=== PATIENT | male | born 1995 | race Caucasian/White ===

== ENCOUNTER 2019-01-29 11:39 | Observation (INO) | payer OTHER ==
[2019-01-29] MEDS ORDERED: NS 1,000 ML IV ONE (12:00)
[2019-01-29] MEDS ORDERED: ONDANSETRON 4 MG/2 ML VIAL IVP ONE (12:00)
--- NOTE | 2019-01-29 12:00 | EDPHY ---
H & P Stated Complaint: Pt N/V since 0400, denies bleeding, has bilat LQ pain - Personal History Current Tetanus/Diphtheria Vaccine: Yes - Medical/Surgical History Hx Asthma: No Hx Chronic Respiratory Disease: No Hx Diabetes: No Hx Cardiac Disease: No Hx Renal Disease: No Hx Cirrhosis: No Hx Alcoholism: No Hx HIV/AIDS: No Hx Splenectomy or Spleen Trauma: No Other PMH: none - Social History Smoking Status: Never smoked Time Seen by Provider: 01/29/19 11:44 HPI/ROS: CHIEF COMPLAINT: Nausea vomiting diarrhea since 4:00 a.m. HISTORY OF PRESENT ILLNESS: 23-year-old male with no history of chronic abdominal pathology abdominal surgeries awoke with nausea vomiting diarrhea since 4:00 a.m. today. No alcohol use last evening. Lives by himself. No international travel. No untreated water sources. Last antibiotic was approximately once ago for upper respiratory infection symptoms but notes no sequelae from that. He denies: Abdominal pain currently, testicular pain, back pain, fever, chills, myalgias, trauma, urinary abnormality REVIEW OF SYSTEMS: 10 systems reviewed and negative with the exception of the elements mentioned in the history of present illness PAST MEDICAL & SURGICAL HISTORY: No pertinent medical or surgical history SOCIAL HISTORY: No alcohol use last evening PHYSICAL EXAM (Prior to examination, patient consented to physical exam, hands were washed and my usual and customary physical exam procedures followed) 1) GENERAL: Well-developed, well-nourished, alert and oriented. Appears to be in no acute distress. 2) HEAD: Normocephalic, atraumatic 3) HEENT: Pupils equal, round, reactive to light bilaterally. Sclera anicteric. Nasopharynx, oropharynx, clear, no lesions. Dry mucous membranes. 4) NECK: Full range of motion, no meningeal signs. 5) LUNGS: Clear auscultation bilaterally, no wheezes, no rhonchi, no retractions. 6) HEART: Regular rate and rhythm, no murmur, no heave, no gallop. 7) ABDOMEN: No guarding, no rebound, no focal tenderness, negative McBurney's, negative Mercado's, negative Rovsing's, negative peritoneal sign, I am unable to elicit any abdominal pain on exam 8) MUSCULOSKELETAL: Moving all extremities, no focal areas of tenderness, no obvious trauma. No peripheral edema or discoloration. 9) BACK: No CVA tenderness, no midline vertebral tenderness, no fluctuance, no step-off, no obvious trauma, no visual or palpable abnormality. 10) SKIN: No rash, no petechiae. 11) Psychiatric: Patient is oriented X 3, there is no agitation. DIFFERENTIAL DIAGNOSIS: My differential diagnosis includes, but is not limited to, acute appendicitis, acute cholecystitis, bowel obstruction, acute pancreatitis, testicular torsion, gastritis and urinary tract infection. The patient understands that this diagnosis is provisional and can never be 100% accurate. This is a partial list of diagnoses considered. These considerations are based on history, physical exam, past history and reassessment. (Chung Al) Constitutional: Initial Vital Signs Temperature (C) 36.5 C 01/29/19 11:42 Heart Rate 71 01/29/19 11:42 Respiratory Rate 16 01/29/19 11:42 Blood Pressure 149/82 H 01/29/19 11:42 O2 Sat (%) 99 01/29/19 11:42 O2 Delivery Mode Room Air O2 (L/minute) 2 Allergies/Adverse Reactions: No Known Allergies Allergy (Verified 01/29/19 18:31) Home Medications: Medication Instructions Recorded NK [No Known Home Meds] 01/29/19 Medical Decision Making - Diagnostics Imaging Results: Imaging Impressions Abdomen CT 01/29/19 13:12 Impression: 1. Possible early acute appendicitis with multiple appendicoliths and thickening of the appendix up to 15 mm. 2. No bowel obstruction, abscess, or focal fluid collection. Findings and recommendations discussed with Emergency Department physicianChung PAC at 14:36 hour, 01/29/2019. Final report concurs with initial preliminary interpretation. ED Course/Re-evaluation: 130 p.m.: Re-evaluated the patient, [place] [address]. I re -examined the patient he is complaining of continued pain lower abdomen. When I reexamine the patient I am unable to elicit pain. We discussed options including recheck in the ER in [address] imaging now to evaluate for possible appendicitis. Patient requests CT imaging now. Indications risks benefits discussed with patient he consents. 2:40 p.m.: Discussed with patient's imaging results positive for appendicular lists a possible early appendicitis. Will consult with surgery 246 pm: Dr Amin in ER to see patient (Chung Al) Other Provider: PHYSICIAN DOCUMENTATION: The patient was evaluated and managed by the Physician Business Applications Manager and myself. I have reviewed the chart and agree with the findings and plan of care as documented. In addition, I examined the patient myself at 1220. History confirmed as vomiting and diarrhea since 4:00 a.m.. Physical findings as follows : Abdomen soft nontender, specifically no McBurney's point tenderness. Plan IV hydration, antiemetics, then reassess. CT performed for continuing pain, reviewed at 2:30 p.m. Has an appendicolith. Plan for surgical consultation. Possible appendicitis. I am the secondary supervising physician. (Aston Stone) - Data Points Laboratory Results: Laboratory Results 01/29/19 12:00 01/29/19 12:00 01/29/19 01/29/19 12:00 12:00 WBC 12.82 10^3/uL H 10^3/uL (3.80-9.50) RBC 4.97 10^6/uL 10^6/uL (4.40-6.38) Hgb 15.6 g/dL g/dL (13.7-17.5) Hct 44.6 % % (40.0-51.0) MCV 89.7 fL fL (81.5-99.8) MCH 31.4 pg pg (27.9-34.1) MCHC 35.0 g/dL g/dL (32.4-36.7) RDW 12.4 % % (11.5-15.2) Plt Count 301 10^3/uL 10^3/uL (150-400) MPV 9.2 fL fL (8.7-11.7) Neut % (Auto) 85.6 % H % (39.3-74.2) Lymph % (Auto) 12.3 % L % (15.0-45.0) [place] % (Auto) 1.6 % L % (4.5-13.0) Eos % (Auto) 0.0 % L % (0.6-7.6) Baso % (Auto) 0.2 % L % (0.3-1.7) Nucleat RBC Rel Count 0.0 % % (0.0-0.2) Absolute Neuts (auto) 10.96 10^3/uL H 10^3/uL (1.70-6.50) Absolute Lymphs (auto) 1.58 10^3/uL 10^3/uL (1.00-3.00) Absolute Monos (auto) 0.21 10^3/uL L 10^3/uL (0.30-0.80) Absolute Eos (auto) 0.00 10^3/uL L 10^3/uL (0.03-0.40) Absolute Basos (auto) 0.03 10^3/uL 10^3/uL (0.02-0.10) Absolute Nucleated RBC 0.00 10^3/uL 10^3/uL (0-0.01) Immature Gran % 0.3 % % (0.0-1.1) Immature Gran # 0.04 10^3/uL 10^3/uL (0.00-0.10) Sodium 141 mEq/L mEq/L (135-145) Potassium 3.9 mEq/L mEq/L (3.5-5.2) Chloride 105 mEq/L mEq/L (97-110) Carbon Dioxide 22 mEq/l mEq/l (22-31) Anion Gap 14 mEq/L mEq/L (6-14) BUN 15 mg/dL mg/dL (7-23) Creatinine 0.8 mg/dL mg/dL (0.7-1.3) Estimated GFR > 60 Glucose 125 mg/dL H mg/dL (70-100) Calcium 9.9 mg/dL mg/dL (8.5-10.4) Total Bilirubin 0.8 mg/dL mg/dL (0.1-1.4) Conjugated Bilirubin 0.2 mg/dL mg/dL (0.0-0.5) Unconjugated Bilirubin 0.6 mg/dL mg/dL (0.0-1.1) AST 30 IU/L IU/L (17-59) ALT 65 IU/L IU/L (21-72) Alkaline Phosphatase 90 IU/L IU/L (38-126) Total Protein 8.4 g/dL H g/dL (6.3-8.2) Albumin 5.1 g/dL H g/dL (3.5-5.0) Lipase 54 IU/L IU/L (23-300) Medications Given: Hydrocodone Bitart/Acetaminophen ([place] 5/325) 1 - 2 tab PO Q4HRS PRN PRN Reason: Pain, Moderate Able to Take PO Stop: 02/08/19 17:17 Last Admin: 01/29/19 17:52 Dose: 1 tab Lactated Ringer's (Lr) 1,000 mls @ 75 mls/hr IV CONT LARRY Stop: 07/28/19 17:29 Last Admin: 01/29/19 17:52 Dose: 1,000 mls Discontinued Medications Bupivacaine HCl/Epinephrine Bitart (Bupivacaine/Epi) Confirm Administered Dose 30 ml .ROUTE .STK-MED ONE Stop: 01/29/19 15:21 Last Admin: 01/29/19 16:19 Dose: 30 ml Citric Acid/Sodium Citrate (Bicitra) 30 ml PO ONCE ONE Stop: 01/29/19 15:40 Last Admin: 01/29/19 15:44 Dose: 30 ml Haloperidol Lactate (Haldol Injection) 2.5 mg IVP EDNOW ONE Stop: 01/29/19 13:49 Last Admin: 01/29/19 13:50 Dose: 2.5 mg Sodium Chloride (Ns) 1,000 mls @ 0 mls/hr IV ONCE ONE PRN Reason: Wide Open Stop: 01/29/19 12:01 Last Admin: 01/29/19 12:06 Dose: 1,000 mls Ceftriaxone Sodium/Dextrose (Rocephin 1 Gm (Premix)) 50 mls @ 100 mls/hr IV EDNOW ONE PRN Reason: Protocol Stop: 01/29/19 15:41 Last Admin: 01/29/19 15:18 Dose: 50 mls Metronidazole/Sodium Chloride (Flagyl 500 Mg (Premix)) 100 mls @ 100 mls/hr IV EDNOW ONE PRN Reason: Protocol Stop: 01/29/19 16:10 Last Admin: 01/29/19 18:12 Dose: Not Given Metronidazole/Sodium Chloride (Flagyl 500 Mg (Premix)) 100 mls @ 100 mls/hr IV ONCALL ONE PRN Reason: Protocol Stop: 01/29/19 16:44 Last Admin: 01/29/19 15:51 Dose: 100 mls Midazolam HCl (Versed) 2 mg IVP ONCALL ONE Stop: 01/29/19 15:40 Last Admin: 01/29/19 15:46 Dose: 2 mg Morphine Sulfate (Morphine) 4 mg IVP EDNOW ONE Stop: 01/29/19 12:01 Last Admin: 01/29/19 12:06 Dose: 4 mg Ondansetron HCl (Zofran) 4 mg IVP EDNOW ONE Stop: 01/29/19 12:01 Last Admin: 01/29/19 12:06 Dose: 4 mg Departure - Departure Disposition: [facility] Inpatient Acute Clinical Impression: Acute appendicitis Qualifiers: Acute appendicitis type: unspecified acute appendicitis type Qualified Code(s) : K35.80 - Unspecified acute appendicitis Condition: Good
[2019-01-29 12:46] LABS: PLATELET COUNT 301 10^3/uL (150-400)
[2019-01-29] MEDS ORDERED: IOPAMIDOL (ISOVUE-300) 100 ML BTL ONE (13:16)
[2019-01-29] MEDS ORDERED: HALOPERIDOL LACT 5 MG/ML INJ IVP ONE (13:48)
[2019-01-29] MEDS ORDERED: BUPIVACAINE/EPI 0.5% 30 ML SDV ONE (15:20)
--- NOTE | 2019-01-29 15:30 | GHP ---
[f rep st] HISTORY AND PHYSICAL DATE OF ADMISSION: 01/29/2019 CHIEF COMPLAINT: Right lower quadrant pain. PRESENT ILLNESS: 10 hours of right lower quadrant pain, ongoing vomiting all day in this 23-year-old previously healthy male. A CT scan in the emergency department shows a 12 mm tip of the appendix wi th several appendicoliths noted. There is very little surrounding inflammation. PAST MEDICAL HISTORY: None. ALLERGIES: None. CURRENT MEDICATIONS: None. PREVIOUS SURGERY: ORIF left arm. MEDICAL PROBLEMS: Denies asthma, heart trouble, diabetes, epilepsy, rheumatic fever. Nonsmoker, dra kuo at one time but none recently. 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 [facility] [employer] [facility]. PHYSICAL EXAM: HEENT: No scleral icterus. Pharynx clear. NECK: Supple without adenopathy. LUNGS : Clear. HEART: Normal S1, S2 without murmur. ABDOMEN: Soft, minimal right lower quadrant tender ness. EXTREMITIES: Lower extremities unremarkable. LABORATORY: Exams include a white blood count of 12,000. ASSESSMENT: Clearly abnormal appendix on CT scan with appendicoliths and swollen tip of the appendix . RECOMMENDATIONS: Laparoscopic appendectomy. Antibiotic management is inappropriate in someone with appendicoliths. Risks and benefits of the surgery were explained to the patient. He is excited to [facility]. /[id number]/MODL
[2019-01-29] MEDS ORDERED: CITRIC ACID/SODIUM CITRATE 30 ML UDCUP ONE (15:37)
[2019-01-29] MEDS ORDERED: MIDAZOLAM 2 MG/2 ML VIAL ONE (15:38)
[2019-01-29] MEDS ORDERED: CITRIC ACID/SODIUM CITRATE 30 ML UDCUP PO ONE (15:39)
[2019-01-29] MEDS ORDERED: MIDAZOLAM 2 MG/2 ML VIAL IVP ONE (15:39)
--- NOTE | 2019-01-29 15:40 | PDANEPAE ---
ANE Past Medical History - Cardiovascular History Hx Hypertension: No Hx Arrhythmias: No Hx Chest Pain: No Hx Coronary Artery / Peripheral Vascular Disease: No Hx CHF / Valvular Disease: No Hx Palpitations: No - Pulmonary History Hx COPD: No Hx Asthma/Reactive Airway Disease: No Hx Recent Upper Respiratory Infection: No Hx Oxygen in Use at Home: No Hx Sleep Apnea: No - Endocrine History Hx Diabetes: No Hypothyroid: No Hyperthyroid: No Obesity: moderate ANE Review of Systems Review of Systems: ANE Patient History - Allergies Allergies/Adverse Reactions: No Known Allergies Allergy (Unverified 01/29/19 11:42) - NPO status NPO Since - Liquids (Date): 01/29/19 NPO Since - Liquids (Time): 14:23 NPO Since - Solids (Date): 01/28/19 - Smoking Hx Smoking Status: Never smoked ANE Labs/Vital Signs - Labs Result Diagrams: 01/29/19 12:00 01/29/19 12:00 - Vital Signs Blood Pressure: 152/78 Heart Rate: 87 Respiratory Rate: 16 O2 Sat (%): 98 Height: 167.64 cm Weight: 83.915 kg ANE Physical Exam - Airway Neck exam: FROM Mallampati Score: Class 2 Mouth exam: normal dental/mouth exam - Pulmonary Pulmonary: no respiratory distress - Cardiovascular Cardiovascular: regular rate and rhythym - ASA Status ASA Status: II, E ANE Anesthesia Plan Anesthesia Plan: general endotracheal anesthesia
[2019-01-29] MEDS ORDERED: ROCURONIUM 100 MG/10 ML VIAL ONE (15:42)
[2019-01-29] MEDS ORDERED: DEXAMETHASONE 4 MG/ML VIAL ONE (15:42)
[2019-01-29] MEDS ORDERED: PROPOFOL 200 MG/20 ML VIAL ONE ×2 (15:42→15:43)
[2019-01-29] MEDS ORDERED: LIDOCAINE 2% 5 ML SDV ONE (15:42)
[2019-01-29] MEDS ORDERED: ONDANSETRON 4 MG/2 ML VIAL ONE (15:42)
[2019-01-29] MEDS ORDERED: fentaNYL 100 MCG/2 ML INJ ONE ×2 (15:43→16:34)
[2019-01-29] MEDS ORDERED: fentaNYL 100 MCG/2 ML INJ IVP PRN (16:56)
[2019-01-29] MEDS ORDERED: PROMETHAZINE HCL 25 MG/ML INJ IVP PRN (16:56)
[2019-01-29] MEDS ORDERED: NALOXONE HCL 0.4 MG/ML INJ IVP PRN (16:56)
--- NOTE | 2019-01-29 16:57 | POSTANESTH ---
Post Anesthetic Evaluation Cardiovascular Status: Normal, Stable Respiratory Status: Normal, Stable Level of Consciousness/Mental Status: Can Participate in Eval Pain Control: Adequate, Prn Tx Ordered Nausea/Vomiting Control: Adequate, Prn Tx Ordered Complications Possibly Related to Anesthesia: None Noted
[2019-01-29] MEDS ORDERED: ONDANSETRON 4 MG/2 ML VIAL IVP PRN (17:18)
[2019-01-29] MEDS ORDERED: HYDROCODONE/APAP 5/325 TAB PO PRN (17:18)
--- NOTE | 2019-01-29 17:20 | POSTOPPROG ---
Post Op Note Date of Operation: 01/29/19 Surgeon: Alcon Amin Pre-op Diagnosis: pawan pereira Post-op Diagnosis: same Procedure: lap appy Inf/Abcess present in the surg proc area at time of surgery?: No
[2019-01-29] MEDS ORDERED: LR 1,000 ML IV SCH (17:30)
--- NOTE | 2019-01-29 17:35 | GOP ---
[f rep st] OPERATIVE REPORT DATE OF OPERATION: SURGEON: Alcon Amin MD NEUROSURGEON: Alcon Amin MD PREOPERATIVE DIAGNOSIS: Acute appendicitis. POSTOPERATIVE DIAGNOSIS: Acute appendicitis. PROCEDURE PERFORMED: Laparoscopic appendectomy. FINDINGS: INDICATIONS: A 23-year-old male with clinical picture of acute appendicitis, positive CT scan. DESCRIPTION OF PROCEDURE: General anesthetic. The abdomen scrubbed with ChloraPrep, draped in usual sterile fashion. Infraumbilical incision made. A Veress needle used to achieve a pneumoperitoneum. A 12 mm trocar was placed and eventually 2 other ports. The patient was positioned head down, turn ed to his left, and the small bowel pulled away from the cecum. The appendix was identified in a mil d state of inflammation. No exudate. The mesoappendix was harvested with the Harmonic Scalpel and t hen the appendix was amputated flush on the cecum with an Endo-TOBI blue cartridge, and was placed in an Endopouch and extracted. There was no bleeding. All gas and fluid were aspirated from the abdome n and then the fascial defect at the umbilicus closed with 0 Vicryl. The skin was all closed with 4- 0 Monocryl and Dermabond. Patient tolerated the procedure well. /[id number]/MODL
[2019-01-29] MEDS ORDERED: IBUPROFEN 600 MG TAB PO SCH (22:00)
[2019-01-30] MEDS: IBUPROFEN 600 MG TAB PO SCH ×4 (03:24→19:48)
--- NOTE | 2019-01-30 06:42 | SOAPPROG ---
SOAP Progress Note Assessment/Plan: Assessment: Plan: Subjective: mild abd pain temp last night post op, wbc up to 18 k will keep in house on iv antibioitics to make sure nofurther temp spikes- slight psooible leak from appendix during mobilization. Objective: Vital Signs Temp Pulse Resp BP Pulse Ox 36.9 C 92 16 116/62 94 01/30/19 03:26 01/30/19 03:26 01/30/19 03:26 01/30/19 03:26 01/30/19 03:26 Laboratory Results 01/30/19 04:59 01/29/19 01/30/19 01/31/19 05:59 05:59 05:59 Intake Total 3020 Balance 3020 ICD10 Worksheet Patient Problems: Problems Problem Status Onset Acute appendicitis Acute
--- NOTE | 2019-01-30 15:13 | ASMTCMCOM ---
CM Note CM Note Notes: Spoke with pt in the room today. Pt lives alone and was admitted for an appendectomy, then kept over night when he spiked a fever last night. Pt states his sister has flown in from [place] to be supportive and per pt, surgeon may discharge him later this evening. No therapies ordered. Pt prepared to discharge independently and was given the contact information for financial counseling as he had questions about the potential charges. No further CM needs identified at this time. D/C Plan: Independent with support from sister Date Signed: 01/30/2019 03:12 PM Electronically Signed By:Morelia Bauer
[2019-01-31] MEDS: IBUPROFEN 600 MG TAB PO SCH ×2 (03:15→09:06)
--- NOTE | 2019-01-31 07:16 | GDS ---
[f rep st] DISCHARGE SUMMARY PRESENT ILLNESS: Patient underwent an appendectomy for appendicitis. Febrile the 1st night after garza rgery. Kept an additional day on IV antibiotics. Discharged home on Augmentin 875 p.o. b.i.d. for 6 days. FINAL DIAGNOSIS: Acute appendicitis. OPERATION: Appendectomy. DISPOSITION: Home. Follow up with Dr. Amin in a week. /[id number]/MODL
[2019-01-31 07:49] VITALS: BP 115/60
--- NOTE | 2019-01-31 09:32 | ASMTDCNOTE ---
Case Management Discharge Discharge Order Complete? Answers: Yes Patient to Obtain Answers: via Family Medications Transportation Arranged Answers: Family/Friends Transport will Pick (Date 01/31/2019 12:00 AM & Time) Family Notified Answers: Yes Notes: by pt, sister in from [facility] Discharge Comments Notes: Pt discharged before CM arrived. Pt discharged independently and per RN was comfortable with this plan. No CM needs noted at this time. Date Signed: 01/31/2019 09:31 AM Electronically Signed By:Morelia Bauer
--- NOTE | 2019-01-31 09:35 | ASDISCHSUM ---
Discharge Information Plan Status:Home with No Needs Medically Cleared to Leave:01/31/2019 Discharge Date:01/31/2019 09:21 AM CM D/C Disposition:Home, Routine, Self-Care ADT D/C Disposition:Home, Routine, Self-Care Projected Discharge Date:01/31/2019 09:21 AM Transportation at D/C:Family Discharge Delay Reason: Follow-Up Date:01/31/2019 09:21 AM Discharge Slot: Final Diagnosis:appendicitis Placement Information Patient Contact Information Contact Name:CARLITO Relationship:Father Address: Work Phone: City: [facility] Phone: [facility] Code: Email: Financial Information Financial Class:[employer] Primary Plan Desc:[employer] LOCAL Primary Plan Number:[id number] Secondary Plan Desc: Secondary Plan Number: Assessment Information LACE LACE Length of stay for Answers: 2 days current admission Acuity / Level of Answers: No Care: Did the patient have an inpatient admission? # of Emergency department Answers: 1-2 visits in the last 6 months Score: 3 Date Signed: 01/31/2019 09:33 AM Electronically Signed By:Morelia Bauer [facility] CM Progress Note CM Note CM Note Notes: Spoke with pt in the room today. Pt lives alone and was admitted for an appendectomy, then kept over night when he spiked a fever last night. Pt states his sister has flown in from [place] to be supportive and per pt, surgeon may discharge him later this evening. No therapies ordered. Pt prepared to discharge independently and was given the contact information for financial counseling as he had questions about the potential charges. No further CM needs identified at this time. D/C Plan: Independent with support from sister Date Signed: 01/30/2019 03:12 PM Electronically Signed By:Morelia Bauer Case Management Discharge Plan Note Case Management Discharge Discharge Order Complete? Answers: Yes Patient to Obtain Answers: via Family Medications Transportation Arranged Answers: Family/Friends Transport will Pick (Date 01/31/2019 12:00 AM & Time) Family Notified Answers: Yes Notes: by pt, in from [facility] Discharge Comments Notes: Pt discharged before CM arrived. Pt discharged independently and per RN was comfortable with this plan. No CM needs noted at this time. Date Signed: 01/31/2019 09:31 AM Electronically Signed By:Morelia Bauer Intervention Information
== END 2019-01-31 09:21 | disposition home or self-care (01) ==
LOC: F3E 17:41
PROVIDERS: ADMIT Surgery; ATTEND Surgery
PROC: 0DTJ4ZZ Resection of Appendix, Percutaneous Endoscopic Approach (ICD-10-PCS; principal; 2019-01-29 15:45)
DX: K35.80 Unspecified acute appendicitis (principal); R50.82 Postprocedural fever
CPT/HCPCS: 44970; 74177; 96361; 96374; 96375; 96376; 99285; G0378; J0696; J1100; J1630; J2250; J2270; J2405; J2704; J3010; Q9967